=== PATIENT | female | born 1940 | race Two or more races ===

== ENCOUNTER 2018-10-06 19:30 | Inpatient (IN) | payer MEDICARE, OTHER ==
[~2018-10-06] VITALS: Ht 157.5 cm; Wt 39.6 kg
[~2018-10-06 19:30] MED LIST: APOM10CA7 SQ; ASPI-605 PO; BESI5DRO RIGHTEYE; BIMA2.5D5 EACHEYE; CARB1CAP7 PO; CIPR500T5 PO; CYAN-10 IJ; DIFL5DRO OP; ESCI20TA PO; KETO5DRO3 RIGHTEYE; OMEG1CAP PO; OMEP20TA5 PO; SENN8.6T7 PO; SITA1TAB6 PO
--- NOTE | 2018-10-06 20:20 | NUR ---
Dr. Hanson at bedside for MSE.
[2018-10-06] MEDS ORDERED: IV NORMAL SALINE 1000 ML BAG IV ONE (20:30)
--- NOTE | 2018-10-06 20:37 | NUR ---
Xray at bedside.
--- NOTE | 2018-10-06 20:50 | NUR ---
Pt refused perez catheter, able to go in bedpan. Patient provided urine sample, sent to lab.
[2018-10-06 20:53] LABS: CARBON DIOXIDE 32 mmol/L (21-32); CHLORIDE 107 mmol/L (98-107); CREATININE 0.5 mg/dL (0.6-1.3); GLUCOSE 129 mg/dL (74-106); POTASSIUM 4.4 mmol/L (3.5-5.1); UREA NITROGEN, BLOOD 33 mg/dL (7-18)
[2018-10-06 20:54] LABS: BASOPHILS % (AUTO) 0.6 % (0.0-2.0); EOSINOPHILS % (AUTO) 0.8 % (0.0-7.0); HEMATOCRIT 36.2 % (31.2-41.9); HEMOGLOBIN 11.7 g/dL (10.9-14.3); LYMPHOCYTES # (AUTO) 1.1 K/uL (20.0-40.0); LYMPHOCYTES % (AUTO) 22.3 % (20.5-51.5); MEAN CORPUSCULAR HEMOGLOBIN 30.1 uug (24.7-32.8); MEAN CORPUSCULAR HGB CONC 32 g/dL (32.3-35.6); MEAN CORPUSCULAR VOLUME 93.5 fL (75.5-95.3); MONOCYTES # (AUTO) 0.4 K/uL (2.0-10.0); MONOCYTES % (AUTO) 7.2 % (0.0-11.0); NEUTROPHILS # (AUTO) 3.5 K/uL (1.8-8.9); NEUTROPHILS % (AUTO) 69.1 % (38.5-71.5); PLATELET COUNT (AUTO) 168 K/uL (179-408); RED BLOOD CELL COUNT(AUTO) 3.87 MIL/uL (3.63-4.92); WHITE BLOOD COUNT (AUTO) 5.1 K/uL (3.8-11.8)
[2018-10-06 20:57] LABS: *BILIRUBIN,URIN NEGATIVE (NEGATIVE); *BLOOD, URINE NEGATIVE (NEGATIVE); *COLOR,URINE YELLOW (YELLOW); *KETONES,URINE NEGATIVE (NEGATIVE); *UROBILINOGEN,URINE 0.2 E.U./dl (NORMAL); LEUKOCYTE ESTERASE ,URINE NEGATIVE (NEGATIVE); NITRITE, URINE NEGATIVE (NEGATIVE); UGLUCOSE NEGATIVE (NEGATIVE)
[2018-10-06 21:02] LABS: *CLARITY,URINE SLIGHTLY HAZY (CLEAR)
[2018-10-06 21:03] LABS: MUCUS,URINE FEW /LPF (0-FEW); SQUAMOUS EPITHELIAL CELL,UR MODERATE /HPF (NONE SEEN); URINE AMORPHOUS PHOSPHATES FEW /HPF; WBC,URINE 0-3 /HPF (0-3)
[2018-10-06 21:08] LABS: ALANINE AMINOTRANSFERASE 7 U/L (14-59); ALKALINE PHOSPHATASE 52 U/L (50-136); ASPARTATE AMINOTRANSFERASE 13 U/L (15-37); BILIRUBIN,DIRECT 0.1 mg/dL (0.0-0.2); BILIRUBIN,TOTAL 0.4 mg/dL (0.2-1.0); TOTAL PROTEIN, SERUM 6.5 g/dL (6.4-8.2)
[2018-10-06] MEDS ORDERED: BISA10SU11 RC (21:14)
[2018-10-06] MEDS ORDERED: MAGN400T6 PO (21:14)
[2018-10-06] MEDS ORDERED: LINA5TAB PO (21:14)
[2018-10-06] MEDS ORDERED: QUET25TA PO (21:14)
[2018-10-06] MEDS ORDERED: MAGN400O6 PO (21:14)
[2018-10-06] MEDS ORDERED: METF-442 PO (21:14)
[2018-10-06] MEDS ORDERED: APIX2.5T PO (21:14)
[2018-10-06] MEDS ORDERED: MULT-213 PO (21:14)
[2018-10-06] MEDS ORDERED: DOCU100C36 PO (21:14)
[2018-10-06] MEDS ORDERED: ASCO500C18 PO (21:14)
[2018-10-06] MEDS ORDERED: LATA2.5D7 EACHEYE (21:14)
[2018-10-06] MEDS ORDERED: QUET100T PO (21:14)
[2018-10-06] MEDS ORDERED: ARGI1POW13 PO (21:14)
[2018-10-06] MEDS ORDERED: FLUT16SP NS (21:14)
[2018-10-06] MEDS ORDERED: CLON0.5T PO (21:14)
[2018-10-06] MEDS ORDERED: LACT1CAP83 PO (21:14)
[2018-10-06] MEDS ORDERED: ACET-2154 PO ×2 (21:14)
[2018-10-06] MEDS ORDERED: CRAN425C6 PO (21:14)
--- NOTE | 2018-10-06 21:26 | NUR ---
Call placed to [facility], Woodrow Patel ([email or web address]) has been paged.
--- NOTE | 2018-10-06 21:42 | NUR ---
Dr. Patel at bedside.
[2018-10-06] MEDS ORDERED: MAGNESIUM HYDROXIDE 30 ML LIQUID UDC PO PRN (22:15)
[2018-10-06] MEDS ORDERED: BISACODYL 10 MG SUPP.RECT RC PRN (22:15)
--- NOTE | 2018-10-06 22:17 | NUR ---
Report given to Georgina CORNELIUS Tele.
[2018-10-06] MEDS ORDERED: ONDANSETRON 4 MG/2 ML VIAL IV PRN (22:30)
[2018-10-06] MEDS ORDERED: HYDROCODONE/APAP 5-325MG TABLET PO PRN (22:30)
[2018-10-06] MEDS ORDERED: DEXTROSE 50% 50 ML DISP.SYRIN IV PRN (22:30)
[2018-10-06 22:40] VITALS: BP 140/59
--- NOTE | 2018-10-06 23:00 | NUR ---
RECEIVED PATIENT VIA GURNEY FROM ER. PATIENT IS A/O X2-3. FARSI SPEAKING BUT ABLE TO MAKE SIMPLE NEEDS KNOWN. DENIES PAIN. NO RESP. DISTRESS NOTED. VSS. PATIENTS FAMILY REPORTED THAT PATIENT HAS OLD SCAR NOTED TO SACRAL AREA. UPON PHYSICAL ASSESSMENT, OPEN AREA NOTED AT OLD SCAR SITE. SMALL SMEAR OF BLOOD NOTED ON DIAPER. AFFECTED AREA CLEANED AND MEPILEX APPLIED. CHIEF MAINTENANCE SUPERVISOR NOTIFIED. PICTURE TAKEN AND PLACED IN CHART. WOUND CARE ORDERED. PATIENT ON TELE SR WITH FREQUENT PVC'S. PATIENT REPOSITIONED TO SIDE FOR PRESSURE RELIEF. BED ALARM ON. CALL LIGHT IN REACH. ALL NEED ATTENDED. WILL CONTINUE TO MONITOR AND ASSESS.
--- NOTE | 2018-10-06 23:30 | NUR ---
PATIENT IS VERY ANXIOUS AND UPSET THAT SHE HASN'T TAKEN HER [place] MEDIATION FOR 20:00. NOTIFIED HELEN-BANKING CONSULTANT FOR FURTHER ORDERS. RECEIVED ORDER FOR PATIENT TO TAKE DOSE, BUT MEDICATION IS NOT AVAILABLE AT THIS TIME. SEMIAUTOMATIC STITCHER OPERATOR NOTIFIED.
[2018-10-06] MEDS: IV NS 1000 ML 1,000 ML IV PRN (23:51)
[2018-10-07] MEDS ORDERED: TEMAZEPAM 15 MG CAPSULE PO ONE (00:15)
--- NOTE | 2018-10-07 00:25 | NUR ---
PATIENT GIVEN SLEEPING PILL ORDERED. IVF INFUSING WELL. BED ALARM ON.
[2018-10-07] MEDS: ACETAMINOPHEN 325 MG TABLET PO PRN (02:03)
--- NOTE | 2018-10-07 02:05 | NUR ---
PATIENT AWAKE IN BED, CRYING OF A "BURNING FEEING" ON LOWER BACK. PATIENT GIVEN TYLENOL 650MG PO PRN FOR PAIN AND REPOSITIONED. WILL CONTINUE TO MONITOR AND ASSESS.
--- NOTE | 2018-10-07 02:48 | NUR ---
PATIENT ASLEEP. NO S/S OF PAIN OR DISCOMFORT. BED ALARM ON. WILL CONTINUE TO MONITOR AND ASSESS.
[2018-10-07 04:00] VITALS: BP 102/63
--- NOTE | 2018-10-07 06:01 | NUR ---
PATIENT ASLEEP. EASILY AROUSABLE. REPOSITIONED TO SIDE. ON TELE SR WITH PVC'S. BED ALARM ON, CALL LIGHT IN REACH. ALL NEEDS ATTENDED.
[2018-10-07] MEDS: BLOOD SUGAR DIAGNOSTIC 1 EACH STRIP VI SCH ×4 (06:35→20:36)
[2018-10-07] MEDS ORDERED: APOKYN (07:00)
[2018-10-07 07:26] LABS: BASOPHILS % (AUTO) 0.8 % (0.0-2.0); EOSINOPHILS # (AUTO) 0.1 K/uL (0.0-0.7); EOSINOPHILS % (AUTO) 1.3 % (0.0-7.0); HEMATOCRIT 31.7 % (31.2-41.9); HEMOGLOBIN 10.3 g/dL (10.9-14.3); LYMPHOCYTES # (AUTO) 1.2 K/uL (20.0-40.0); LYMPHOCYTES % (AUTO) 27.9 % (20.5-51.5); MEAN CORPUSCULAR HEMOGLOBIN 30.5 uug (24.7-32.8); MEAN CORPUSCULAR HGB CONC 33 g/dL (32.3-35.6); MEAN CORPUSCULAR VOLUME 93.6 fL (75.5-95.3); MONOCYTES # (AUTO) 0.4 K/uL (2.0-10.0); MONOCYTES % (AUTO) 9.1 % (0.0-11.0); NEUTROPHILS # (AUTO) 2.6 K/uL (1.8-8.9); NEUTROPHILS % (AUTO) 60.9 % (38.5-71.5); PLATELET COUNT (AUTO) 144 K/uL (179-408); RED BLOOD CELL COUNT(AUTO) 3.39 MIL/uL (3.63-4.92); WHITE BLOOD COUNT (AUTO) 4.2 K/uL (3.8-11.8)
[2018-10-07 07:42] LABS: ALANINE AMINOTRANSFERASE 7 U/L (14-59); ALKALINE PHOSPHATASE 41 U/L (50-136); ASPARTATE AMINOTRANSFERASE 11 U/L (15-37); BILIRUBIN,TOTAL 0.3 mg/dL (0.2-1.0); CARBON DIOXIDE 30 mmol/L (21-32); CHLORIDE 112 mmol/L (98-107); CHOLESTEROL 139 mg/dL (<200); CREATININE 0.5 mg/dL (0.6-1.3); GLUCOSE 153 mg/dL (74-106); HDL CHOLESTEROL 44 mg/dL (40-60); MAGNESIUM 1.8 mg/dL (1.8-2.4); PHOSPHOROUS 3.1 mg/dL (2.5-4.9); POTASSIUM 3.8 mmol/L (3.5-5.1); TOTAL PROTEIN, SERUM 5.3 g/dL (6.4-8.2); TRIGLYCERIDES 73 MG/DL (30-150); UREA NITROGEN, BLOOD 26 mg/dL (7-18)
[2018-10-07 07:47] LABS: THYROID STIMULATING HORMONE 0.989 mIU/mL (0.358-3.740)
[2018-10-07] MEDS: ESCITALOPRAM OXALATE 10 MG TABLET PO SCH (08:08)
[2018-10-07] MEDS: MAGNESIUM OXIDE 400 MG TABLET PO SCH (08:08)
[2018-10-07] MEDS: CULTURELLE CAPSULE PO SCH (08:08)
[2018-10-07] MEDS: OMEGA-3 FATTY ACIDS/FISH OIL CAPSULE PO SCH ×4 (08:09→17:37)
[2018-10-07] MEDS: DOCUSATE SODIUM 100 MG CAPSULE PO SCH ×3 (08:09→17:38)
[2018-10-07] MEDS: ASCORBIC ACID 500 MG TABLET PO SCH (08:09)
[2018-10-07] MEDS: MULTIVIT, IRON, MIN NO. 8, FA TABLET PO SCH (08:11)
[2018-10-07] MEDS: INSULIN REGULAR, HUMAN 300 UNIT/3 ML VIAL SQ PRN ×2 (08:13→11:57)
[2018-10-07] MEDS ORDERED: Medication Not On Formulary EA (Multivitamins W-Minerals (Multivitamin With Minerals) 1 PO SCH (09:00)
[2018-10-07] MEDS ORDERED: Medication Not On Formulary EA (Ascorbic Acid (Vitamin C) 500 MG) PO SCH (09:00)
[2018-10-07] MEDS ORDERED: ASPIRIN EC 81 MG TABLET.DR PO SCH (09:00)
[2018-10-07] MEDS ORDERED: QUETIAPINE FUMARATE 25 MG TABLET PO SCH (09:00)
[2018-10-07] MEDS ORDERED: Medication Not On Formulary EA (Cranberry Extract (Cranberry) 425 MG) PO SCH (09:00)
[2018-10-07] MEDS ORDERED: Medication Not On Formulary EA (Lactobacillus Acidophilus/Pect (Acidophilus-Pectin Capsu PO SCH (09:00)
[2018-10-07] MEDS ORDERED: Medication Not On Formulary EA (Arginine/Ascorbate Sod/Vite AC (Arginaid Powder) 1 EACH) PO SCH (09:00)
--- NOTE | 2018-10-07 11:00 | NUR ---
CHANGE OF ASSIGNMENT GOT REPORT FROM ASHLI RIVERS
[2018-10-07 11:27] VITALS: BP 127/59
--- NOTE | 2018-10-07 12:20 | NUR ---
patient was not responsive to touch or arousal to words for about 5-6 min , then she become responsive and opened eyes, no resp distress was noted.
[2018-10-07] MEDS: RYTARY PO SCH ×4 (13:08→20:21)
[2018-10-07] MEDS: IV NS 1000 ML 1,000 ML IV PRN (13:08)
[2018-10-07] MEDS ORDERED: IV 1/2NS 1000 ML 500 ML IV PRN (13:30)
[2018-10-07 15:47] VITALS: BP 117/63
--- NOTE | 2018-10-07 18:09 | NUR ---
Tried to give medications that are due at 1700, patient is in deep sleep, refused open eyes , VS are stable, on monitor is stable. doctor Tra notified
[2018-10-07 18:26] VITALS: BP 125/65
--- NOTE | 2018-10-07 19:32 | NUR ---
Patient is sleeping refused medications that are due at 1700, patient is in deep sleep, refused open eyes , VS are stable, on monitor is stable. doctor Jamar Young. notified, he wanted to stop all pain meds and phsych. meds for now, production shift supervisor nurse will call the farmacy and follow up. no distress , safety reinforced
[2018-10-07 20:03] VITALS: BP 131/53
[2018-10-07] MEDS: LATANOPROST OPHT DROP 2.5 ML BOTTLE EACHEYE SCH (20:23)
[2018-10-07] MEDS: QUETIAPINE FUMARATE 100 MG TABLET PO SCH (20:36)
--- NOTE | 2018-10-07 21:00 | NUR ---
PATIENT SENT TO CT FOR ORDERED CT OF THE HEAD WITHOUT CONTRAST
--- NOTE | 2018-10-07 21:15 | NUR ---
PATIENT BACK FROM CT
--- NOTE | 2018-10-07 21:30 | NUR ---
RECEIVED PATIENT FROM DAY SHIFT NURSE. PATIENT ALERT AND ORIENTED X 1-2. RESPONSIVE TO VERBAL AND TACTILE STIMULI. FAMILY AT BEDSIDE. FAMILY REQUESTING TO ASSIST WITH EVENING MEDICATION ADMINISTRATION SO PATIENT DOES NOT REFUSE MEDICATIONS. ORDER FOR CT OF THE HEAD FOR THIS EVENING. NEW ORDER FROM [facility] TO HOLD PAIN AND PSYCH MEDS. WILL FOLLOW THROUGH. WILL CONTINUE TO MONITOR.
--- NOTE | 2018-10-08 00:58 | NUR ---
INFORMED HEAD ROSE GROWER MD CHERRY OF CT SCAN RESULTS. WILL CONTINUE TO MONITOR.
[2018-10-08 04:06] VITALS: BP 133/60
[2018-10-08] MEDS: BLOOD SUGAR DIAGNOSTIC 1 EACH STRIP VI SCH ×4 (06:41→20:23)
--- NOTE | 2018-10-08 06:45 | NUR ---
PATIENT SLEPT WELL THROUGHOUT THE NIGHT. NO C/O PAIN OR SOB. RESTING IN BED.. WILL ENDORSE TO ONCOMING SHIFT ACCORDINGLY.
--- NOTE | 2018-10-08 07:05 | NUR ---
RECEIVED PATIENT IN BED, SLEEPING. PATIENT CONFUSED. RESPONSIVE TO VERBAL AND TACTILE STIMULI BY OPENING EYES. PATIENT NON VERBAL. RT. FA IN HL, INTACT AND FLUSHED. PATIENT ON AIR MATRES. SAFETY PRECAUTIONS IN PLACE. ALL NEEDS MET AT THIS TIME. WILL CONTINUE TO MONITOR.
[2018-10-08 07:10] LABS: BASOPHILS % (AUTO) 0.5 % (0.0-2.0); EOSINOPHILS # (AUTO) 0.1 K/uL (0.0-0.7); EOSINOPHILS % (AUTO) 1.9 % (0.0-7.0); HEMOGLOBIN 11.2 g/dL (10.9-14.3); LYMPHOCYTES # (AUTO) 0.9 K/uL (20.0-40.0); LYMPHOCYTES % (AUTO) 21.3 % (20.5-51.5); MEAN CORPUSCULAR HEMOGLOBIN 30.1 uug (24.7-32.8); MEAN CORPUSCULAR HGB CONC 32 g/dL (32.3-35.6); MEAN CORPUSCULAR VOLUME 93.5 fL (75.5-95.3); MONOCYTES # (AUTO) 0.3 K/uL (2.0-10.0); MONOCYTES % (AUTO) 7.6 % (0.0-11.0); NEUTROPHILS # (AUTO) 3.1 K/uL (1.8-8.9); NEUTROPHILS % (AUTO) 68.7 % (38.5-71.5); PLATELET COUNT (AUTO) 141 K/uL (179-408); RED BLOOD CELL COUNT(AUTO) 3.74 MIL/uL (3.63-4.92); WHITE BLOOD COUNT (AUTO) 4.4 K/uL (3.8-11.8)
[2018-10-08 07:25] LABS: CARBON DIOXIDE 26 mmol/L (21-32); CHLORIDE 108 mmol/L (98-107); CREATININE 0.4 mg/dL (0.6-1.3); GLUCOSE 122 mg/dL (74-106); MAGNESIUM 1.8 mg/dL (1.8-2.4); PHOSPHOROUS 2.5 mg/dL (2.5-4.9); UREA NITROGEN, BLOOD 20 mg/dL (7-18)
[2018-10-08] MEDS: DOCUSATE SODIUM 100 MG/10 ML LIQUID UDC PO SCH ×2 (08:39→16:30)
[2018-10-08] MEDS: CULTURELLE CAPSULE PO SCH (08:39)
[2018-10-08] MEDS: OMEGA-3 FATTY ACIDS/FISH OIL CAPSULE PO SCH ×3 (08:40→16:30)
[2018-10-08] MEDS: MULTIVIT, IRON, MIN NO. 8, FA TABLET PO SCH (08:40)
[2018-10-08] MEDS: MAGNESIUM OXIDE 400 MG TABLET PO SCH (08:40)
[2018-10-08] MEDS: RYTARY PO SCH ×4 (08:40→20:16)
[2018-10-08] MEDS: ESCITALOPRAM OXALATE 10 MG TABLET PO SCH (08:40)
[2018-10-08] MEDS: ASCORBIC ACID 500 MG TABLET PO SCH (08:41)
[2018-10-08] MEDS ORDERED: ASPIRIN 81 MG TAB.CHEW PO SCH (09:00)
[2018-10-08] MEDS ORDERED: ASPIRIN EC 81 MG TABLET.DR PO SCH (09:00)
[2018-10-08] MEDS: IV D5 1/2 NS 1000 ML 1,000 ML IV PRN (10:00)
[2018-10-08 11:37] VITALS: BP 162/80
[2018-10-08] MEDS ORDERED: CLONIDINE TTS 2 PATCH TD ONE (12:15)
[2018-10-08 15:38] VITALS: BP 106/70
--- NOTE | 2018-10-08 18:13 | NUR ---
PATIENT IN BED. AOX1 TO SELF. RESPONSIVE TO VERBAL AND TACTILE STIMULI BY OPENING EYES. PATIENT NON VERBAL. RT. FA INTACT. PATIENT WAS NOT COMPLIANT WITH AM MEDICATIONS. MD NOTIFIED AND STARTED HER ON IV FLUIDS. PATIENT NUTRITIONAL INTAKE VERY POOR. NUTRITION CONSULT NEEDED. VS STABLE. PATIENT ON AIR MATRES. SAFETY PRECAUTIONS IN PLACE. ALL NEEDS MET AT THIS TIME.
[2018-10-08] MEDS: INSULIN REGULAR, HUMAN 300 UNIT/3 ML VIAL SQ PRN ×2 (18:28→20:28)
--- NOTE | 2018-10-08 19:40 | NUR ---
Received pt in bed, AAO x 1 watching television. No acute distress noted. Verbally responsive and able to communicate basic needs. Denies pain or discomfort, no facial indications of pain noted. All safety measures and fall precautions maintained. Continuing IVF D5 1/2 NS @ 75 cc/hr in R FA #20g. No s/s infiltration noted. Call light and all personal belongings within reach. Will continue to monitor.
[2018-10-08 20:00] VITALS: BP 111/57
[2018-10-08] MEDS: QUETIAPINE FUMARATE 100 MG TABLET PO SCH (20:16)
[2018-10-08] MEDS: LATANOPROST OPHT DROP 2.5 ML BOTTLE EACHEYE SCH (20:16)
[2018-10-09 04:00] VITALS: BP 144/79
[2018-10-09] MEDS: BLOOD SUGAR DIAGNOSTIC 1 EACH STRIP VI SCH ×4 (06:46→21:00)
--- NOTE | 2018-10-09 06:55 | NUR ---
Pt slept intermittently throughout shift. No acute distress noted. No complaints of pain throughout shift. kept clean and dry, good pericare rendered. All due medications given as ordered, tolerated well. Continuing IVF on RFA, D5 1/2 NS @ 75 cc/hr. No s/s infiltration noted. Safety maintained. Call light and all personal belongings within reach. Will endorse accordingly to oncoming shift.
[2018-10-09 07:00] LABS: CARBON DIOXIDE 28 mmol/L (21-32); CHLORIDE 104 mmol/L (98-107); CREATININE 0.4 mg/dL (0.6-1.3); GLUCOSE 183 mg/dL (74-106); MAGNESIUM 1.7 mg/dL (1.8-2.4); PHOSPHOROUS 2.3 mg/dL (2.5-4.9); UREA NITROGEN, BLOOD 14 mg/dL (7-18)
[2018-10-09 07:37] LABS: BASOPHILS % (AUTO) 0.4 % (0.0-2.0); EOSINOPHILS # (AUTO) 0.1 K/uL (0.0-0.7); EOSINOPHILS % (AUTO) 1.6 % (0.0-7.0); HEMATOCRIT 36.9 % (31.2-41.9); LYMPHOCYTES # (AUTO) 0.9 K/uL (20.0-40.0); LYMPHOCYTES % (AUTO) 23.2 % (20.5-51.5); MEAN CORPUSCULAR HEMOGLOBIN 30.1 uug (24.7-32.8); MEAN CORPUSCULAR HGB CONC 33 g/dL (32.3-35.6); MEAN CORPUSCULAR VOLUME 92.8 fL (75.5-95.3); MONOCYTES # (AUTO) 0.3 K/uL (2.0-10.0); MONOCYTES % (AUTO) 6.5 % (0.0-11.0); NEUTROPHILS # (AUTO) 2.8 K/uL (1.8-8.9); NEUTROPHILS % (AUTO) 68.3 % (38.5-71.5); PLATELET COUNT (AUTO) 144 K/uL (179-408); RED BLOOD CELL COUNT(AUTO) 3.98 MIL/uL (3.63-4.92); WHITE BLOOD COUNT (AUTO) 4.1 K/uL (3.8-11.8)
--- NOTE | 2018-10-09 08:00 | NUR ---
patient received in bed, noted with no respiratory distress, patient no SOB noted. Patient assessed at this time, assessing pupil reflex, patient not interacting with staff, tightening eyes when attempting to assess, closing mouth tightly when assessing her oral mucosa. patient with with side rails up x2, low position and bed alarm on, call light within reach.
--- NOTE | 2018-10-09 09:45 | NUR ---
Attempt made again to try and administer meds to patient continues to refuse to open her eyes when assessing pupil reflex, patient continues to not interact at this time, frequent redirection provided. no distress noted no SOB, tightening hand when assessing pulse on her hand, radial pulse.
[2018-10-09] MEDS ORDERED: MAGNESIUM OXIDE 400 MG TABLET PO ONE (10:15)
--- NOTE | 2018-10-09 10:30 | NUR ---
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
[2018-10-09] MEDS: ESCITALOPRAM OXALATE 10 MG TABLET PO SCH (11:19)
[2018-10-09] MEDS: RYTARY PO SCH ×4 (11:19→21:53)
[2018-10-09] MEDS: MAGNESIUM OXIDE 400 MG TABLET PO SCH (11:20)
[2018-10-09] MEDS: DOCUSATE SODIUM 100 MG/10 ML LIQUID UDC PO SCH ×2 (11:21→17:23)
[2018-10-09] MEDS: ASPIRIN 81 MG TAB.CHEW PO SCH (11:21)
[2018-10-09] MEDS: OMEGA-3 FATTY ACIDS/FISH OIL CAPSULE PO SCH ×3 (11:21→17:23)
[2018-10-09] MEDS: ASCORBIC ACID 500 MG TABLET PO SCH (11:21)
[2018-10-09] MEDS: CULTURELLE CAPSULE PO SCH (11:21)
[2018-10-09 11:26] VITALS: BP 117/76
--- NOTE | 2018-10-09 11:30 | NUR ---
Family here to assist with medication administration, Jennifer, Daughter. patient opening her eyes now with frequent prompting with daughter. patient able to take medications, daughter her to assist with feeding and meds.
[2018-10-09] MEDS: IV D5 1/2 NS 1000 ML 1,000 ML IV PRN (12:24)
--- NOTE | 2018-10-09 12:26 | NUR ---
WOUND CARE CONSULT: PT PRESENTS WITH SACRAL REOPENED WOUND OVER SCARRING, PRESENT ON ADMISSION. 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 RECOMMEND SURGICAL CONSULT. RECOMMENDATIONS MADE FOR SKIN PROTECTION AND DISCUSSED WITH NURSING STAFF. PT IS INCONTINENT. [facility] WILL SEE PRN. GUAJARDO IN AGREEMENT WITH PLAN OF CARE. DEFER TO PLASTIC SURGERY TEAM FOR WOUND TREATMENT PLAN. Addendum: 10/09/18 at 1228 by MARIANELA DUBON RN Amended: Links added.
[2018-10-09] MEDS: INSULIN REGULAR, HUMAN 300 UNIT/3 ML VIAL SQ PRN (12:58)
--- NOTE | 2018-10-09 13:00 | NUR ---
unable to administer 1300 meds, patient took am meds late after 11am.
[2018-10-09] MEDS ORDERED: NEUTRA PHOS PACKET PO ONE (15:15)
[2018-10-09 15:55] VITALS: BP 152/76
--- NOTE | 2018-10-09 16:30 | NUR ---
patient closing her eyes again at this time, refusing to interact with staff, closing her eyes tightly, pulse present, no SOB, continue to assist patient with redirection to assist with coping and anxiety. maintain safety precautions., uncooperative with meds at this time.
--- NOTE | 2018-10-09 17:25 | NUR ---
Daughter Sherry visiting patient upset due to her mother (patient) not being provided with medications, family educated, patient refusing to interact unable to safely administer medications. patient is refusing to open her eyes or interact regardless of frequent prompts risk for aspirating if patient is not fully cooperative. per request contact family thru phone to assist with meds, endorse in nursing report . call family if patient refuses medication; to assist with meds: Sherry (Daughter) [phone] Jennifer (Daughter) [phone] Adryan (Son) [phone]
--- NOTE | 2018-10-09 19:00 | NUR ---
PATIENT AWAKE VERBALLY RESPONSIVE, NO SOB NO CHEST PAIN, FAMILY AT BEDSIDE. CONT TO MONITOR.
[2018-10-09 20:37] VITALS: BP 141/48
[2018-10-09] MEDS: QUETIAPINE FUMARATE 100 MG TABLET PO SCH (21:00)
[2018-10-09] MEDS: LATANOPROST OPHT DROP 2.5 ML BOTTLE EACHEYE SCH (21:52)
--- NOTE | 2018-10-09 22:07 | NUR ---
PATIENT REFUSED BLOOD SUGAR CHECK, GETS AGITATED. SEROQUEL NOT GIVEN PER FAMILY REQUEST. PATIENT AWAKE ALERT, TOOK ALL PO MEDICATIONS. CONT TO MONITOR.
--- NOTE | 2018-10-10 | NUR ---
SPOKE TO SON AND NOTIFY THAT PATIENT VERY AGITATED, CLIMBS OOB, RISK FOR FALL AND INJURY, OK TO GIVE SEROQUEL 50 MG ORDERED, NOTIFY POLA CHERRY RESOURCE TEACHER AND SAID TO GIVE SEROQUEL ORDERED.
[2018-10-10] MEDS: QUETIAPINE FUMARATE 100 MG TABLET PO SCH (00:03)
[2018-10-10] MEDS: IV D5 1/2 NS 1000 ML 1,000 ML IV PRN ×2 (00:52→17:00)
[2018-10-10] MEDS ORDERED: LORAZEPAM 2 MG/1 ML VIAL IV ONE (02:00)
--- NOTE | 2018-10-10 02:00 | NUR ---
PATIENT AWAKE ASSISTED TO COMMODE FOR BLADDER ELIMINATIONS, RENDERED GOOD JOSE CARE, TX DONE ON SACRUM, DRESSING WAS CHANGED, PLACE CLEAN PADS. PATIENT WAS OFFERED FOOD, WATER DENIES PAIN. MULTIPLE NURSING INTERVENTIONS PROVIDED PATIENT STILL AGITATED, PATIENT TRIES TO CLIMB OOB, PULLING IV POLE, PATIENT AT RISK FOR FALL AND INJURY, [facility] WAS NOTIFIED WITH ORDER.
--- NOTE | 2018-10-10 02:10 | NUR ---
PATIENT RESTLESS IN BED, CONTINUE TO CLIMB OOB, PLACE PATIENT IN RECLINING CHAIR TO PREVENT FROM FALL FROM BED. OFFERED FOOD AND WATER, KEPT PATIENT WARM CLEAN AND DRY. FREQUENT VISUAL CHECKS. CONT TO MONITOR.
[2018-10-10 05:19] VITALS: BP 141/52
[2018-10-10] MEDS: MULTIVIT, IRON, MIN NO. 8, FA TABLET PO SCH (06:08)
[2018-10-10] MEDS: BLOOD SUGAR DIAGNOSTIC 1 EACH STRIP VI SCH ×4 (06:08→21:39)
--- NOTE | 2018-10-10 07:00 | NUR ---
PATIENT FALL ASLEEP AT 0400, KEPT CLEAN AND DRY, TURN AND REPOSITION, PATIENT REFUSED MULTIVITAMIN PO, PATIENT GETS AGITATED WHEN PUSH TO TAKE MEDICATION. ENDORSED TO NEXT SHIFT.
[2018-10-10 07:33] LABS: CARBON DIOXIDE 31 mmol/L (21-32); CHLORIDE 106 mmol/L (98-107); CREATININE 0.4 mg/dL (0.6-1.3); GLUCOSE 138 mg/dL (74-106); MAGNESIUM 1.9 mg/dL (1.8-2.4); PHOSPHOROUS 2.5 mg/dL (2.5-4.9); POTASSIUM 4.5 mmol/L (3.5-5.1); UREA NITROGEN, BLOOD 16 mg/dL (7-18)
--- NOTE | 2018-10-10 08:30 | NUR ---
REMAINS SOUNDLY ASLEEP OPENS EYES WHEN NAME IS CALLED BUT HILARY FALLS BACK TO SLEEP TOO RISKY TO GIVE HER ANY MEDICATIONS SHE IS TOO SEDATED ALS UNABLE TO TOLERATE AND EAT HER BREAKFAST SAFELY WILL WAIT UNTIL SHE IS ABLE WILL CONTINUE TO PROVIDE SAFE AND THERAPEUTIC ENVIRONMENT AT ALL TIMES.
[2018-10-10] MEDS: CULTURELLE CAPSULE PO SCH ×2 (09:00→11:54)
[2018-10-10] MEDS: MAGNESIUM OXIDE 400 MG TABLET PO SCH ×2 (09:00→11:54)
[2018-10-10] MEDS: ASCORBIC ACID 500 MG TABLET PO SCH ×2 (09:00→11:54)
[2018-10-10] MEDS: OMEGA-3 FATTY ACIDS/FISH OIL CAPSULE PO SCH ×4 (09:00→16:57)
[2018-10-10] MEDS: ASPIRIN 81 MG TAB.CHEW PO SCH ×2 (09:00→11:53)
[2018-10-10] MEDS: DOCUSATE SODIUM 100 MG/10 ML LIQUID UDC PO SCH ×3 (09:00→16:51)
[2018-10-10] MEDS: ESCITALOPRAM OXALATE 10 MG TABLET PO SCH ×2 (09:00→11:54)
[2018-10-10] MEDS: RYTARY PO SCH ×5 (09:00→20:23)
--- NOTE | 2018-10-10 11:55 | NUR ---
PATIENTS DAUGHTER AGUSTÍN HERE AND STATED THAT SHE WILL BE ABLE TO GIVE PATIENT HER MEDICATIONS PATIENT WAS ABLE TO COMMUNICATE WITH HER DAUGHTER AND COOPERATIVE SO ALL THE MEDICATIONS THAT WAS HELD THIS MORNING WAS GIVEN TO HER AT THIS TIME UNSCHEDULED.
[2018-10-10 12:36] VITALS: BP 137/69
--- NOTE | 2018-10-10 13:21 | NUR ---
DUE MEDICATIONS NOT GIVEN AT THIS TIME TOO SOON BECAUSE AM MEDS WAS GIVEN ABOUT AN HOUR PLUS OR SO WHEN THE DAUGHTER GOT HERE
[2018-10-10] MEDS ORDERED: QUETIAPINE FUMARATE 25 MG TABLET PO PRN (15:00)
[2018-10-10 16:24] VITALS: BP 120/63
[2018-10-10 16:36] VITALS: BP 120/63
[2018-10-10] MEDS: CARBIDOPA/LEVODOPA 25-100MG TABLET PO SCH ×2 (16:57→20:23)
[2018-10-10] MEDS: INSULIN REGULAR, HUMAN 300 UNIT/3 ML VIAL SQ PRN ×2 (17:07→21:40)
--- NOTE | 2018-10-10 19:20 | NUR ---
Received patient lying in bed. AAOx2-3. In no acute distress. Denies any pain or SOB. IV site on right forearm intact and patent. IVF infusing. Isolation precaution observed. Safety measure initiated and call reynolds within reach.
[2018-10-10] MEDS: QUETIAPINE FUMARATE 25 MG TABLET PO SCH (20:23)
[2018-10-10] MEDS: LATANOPROST OPHT DROP 2.5 ML BOTTLE EACHEYE SCH (20:24)
[2018-10-10] MEDS ORDERED: QUETIAPINE FUMARATE 100 MG TABLET PO SCH (21:00)
--- NOTE | 2018-10-11 02:15 | NUR ---
PATIENT ACCIDENTALLY PULLED OUT IV LINE ON RIGHT FA. STARTED NEW IV LINE ON LEFT FA #[id number].
[2018-10-11 04:00] VITALS: BP 154/83
[2018-10-11] MEDS: MULTIVIT, IRON, MIN NO. 8, FA TABLET PO SCH (06:26)
[2018-10-11 06:29] LABS: BASOPHILS % (AUTO) 0.5 % (0.0-2.0); EOSINOPHILS # (AUTO) 0.1 K/uL (0.0-0.7); EOSINOPHILS % (AUTO) 2.2 % (0.0-7.0); HEMATOCRIT 31.2 % (31.2-41.9); HEMOGLOBIN 10.2 g/dL (10.9-14.3); LYMPHOCYTES % (AUTO) 26.8 % (20.5-51.5); MEAN CORPUSCULAR HEMOGLOBIN 30.3 uug (24.7-32.8); MEAN CORPUSCULAR HGB CONC 33 g/dL (32.3-35.6); MEAN CORPUSCULAR VOLUME 92.7 fL (75.5-95.3); MONOCYTES # (AUTO) 0.3 K/uL (2.0-10.0); MONOCYTES % (AUTO) 7.7 % (0.0-11.0); NEUTROPHILS # (AUTO) 2.3 K/uL (1.8-8.9); NEUTROPHILS % (AUTO) 62.8 % (38.5-71.5); PLATELET COUNT (AUTO) 130 K/uL (179-408); RED BLOOD CELL COUNT(AUTO) 3.36 MIL/uL (3.63-4.92); WHITE BLOOD COUNT (AUTO) 3.6 K/uL (3.8-11.8)
--- NOTE | 2018-10-11 06:30 | NUR ---
AAOx2-3. In no acute distress. Denies any pain or SOB. IV site on left forearm intact and patent. IVF infusing. Isolation precaution maintained. Safety measure maintained and call reynolds within reach.
[2018-10-11] MEDS: BLOOD SUGAR DIAGNOSTIC 1 EACH STRIP VI SCH ×4 (06:32→21:38)
[2018-10-11 06:45] LABS: CARBON DIOXIDE 31 mmol/L (21-32); CHLORIDE 107 mmol/L (98-107); CREATININE 0.4 mg/dL (0.6-1.3); GLUCOSE 140 mg/dL (74-106); MAGNESIUM 1.7 mg/dL (1.8-2.4); PHOSPHOROUS 2.8 mg/dL (2.5-4.9); POTASSIUM 5.2 mmol/L (3.5-5.1); UREA NITROGEN, BLOOD 15 mg/dL (7-18)
[2018-10-11] MEDS: IV D5 1/2 NS 1000 ML 1,000 ML IV PRN ×2 (07:21→23:08)
--- NOTE | 2018-10-11 07:30 | NUR ---
RECEIVED PATIENT ON FIRST STEP NICOLE ASLEEP WITH EYES CLOSED SEEMS CALM AT THIS TIME OPENS EYES WHEN TOUCHED OR NAME IS CALLED ON FIRST STEP NICOLE TURNED AND REPOSITIONED WITH HEELS FLOATED IVF REMAINS IN PROGRESS ORDERED CALL LIGHTS AND PERSONAL BELONGINGS ARE PLACED WITHIN EASY REACH NOT IN DISTRESS AT THIS TIME WILL CONTINUE TO OBSERVE.
[2018-10-11] MEDS: DOCUSATE SODIUM 100 MG/10 ML LIQUID UDC PO SCH ×2 (09:00→17:00)
[2018-10-11] MEDS: MAGNESIUM SULFATE/D5W 100 ML IV SCH ×2 (09:04→10:59)
[2018-10-11] MEDS: ASCORBIC ACID 500 MG TABLET PO SCH (09:13)
[2018-10-11] MEDS: MAGNESIUM OXIDE 400 MG TABLET PO SCH (09:13)
[2018-10-11] MEDS: CARBIDOPA/LEVODOPA 25-100MG TABLET PO SCH ×4 (09:13→21:30)
[2018-10-11] MEDS: OMEGA-3 FATTY ACIDS/FISH OIL CAPSULE PO SCH ×3 (09:13→16:54)
[2018-10-11] MEDS: CULTURELLE CAPSULE PO SCH (09:13)
[2018-10-11] MEDS: ASPIRIN 81 MG TAB.CHEW PO SCH (09:13)
[2018-10-11] MEDS: ESCITALOPRAM OXALATE 10 MG TABLET PO SCH (09:13)
[2018-10-11] MEDS: RYTARY PO SCH ×4 (09:14→21:32)
[2018-10-11] MEDS: Z GUARD REMEDY PASTE 57 GM TUBE TOP PRN ×2 (09:14→21:33)
--- NOTE | 2018-10-11 10:48 | NUR ---
PATIENT SEEN AND EXAMINED BY ANGELICA GONZALEZ IN HOME SALES CONSULTANT MAG IS 1.7 WITH NEW ORDERS AND NOTED
[2018-10-11 11:09] VITALS: BP 100/48
[2018-10-11] MEDS: INSULIN REGULAR, HUMAN 300 UNIT/3 ML VIAL SQ PRN ×2 (11:28→21:47)
[2018-10-11 15:37] VITALS: BP 139/76
--- NOTE | 2018-10-11 18:00 | NUR ---
AWAKE MORE ORIENTED AND TALKING BUT SPEECH IS DIFFICULT TO UNDERSTAND BUT SIMPLE NEEDS ARE UNDERSTOOD AND MET.MADE COMFORTABLE.
[2018-10-11 20:00] VITALS: BP 124/77
[2018-10-11] MEDS: ACETAMINOPHEN 325 MG TABLET PO PRN ×2 (20:36→21:30)
--- NOTE | 2018-10-11 21:00 | NUR ---
Received this patient awake alert verbally responsive. No SOB denies chest pain. Tolerated night p.o meds. Repositioned in bed, sponge bath provided & kept comfortable. IVF infusing well, IV site patent. Will continue to monitor.
[2018-10-11] MEDS: QUETIAPINE FUMARATE 25 MG TABLET PO SCH (21:30)
[2018-10-11] MEDS: LATANOPROST OPHT DROP 2.5 ML BOTTLE EACHEYE SCH (21:31)
--- NOTE | 2018-10-12 | NUR ---
Turned & repositioned. No sign of distress.
--- NOTE | 2018-10-12 02:44 | NUR ---
Patient still asleep, resting comfortably.
[2018-10-12 04:00] VITALS: BP 137/61
[2018-10-12] MEDS: BLOOD SUGAR DIAGNOSTIC 1 EACH STRIP VI SCH ×4 (06:54→21:29)
[2018-10-12] MEDS: MULTIVIT, IRON, MIN NO. 8, FA TABLET PO SCH (06:54)
[2018-10-12 07:27] LABS: BASOPHILS % (AUTO) 0.6 % (0.0-2.0); HEMATOCRIT 30.6 % (31.2-41.9); LYMPHOCYTES # (AUTO) 0.9 K/uL (20.0-40.0); LYMPHOCYTES % (AUTO) 19.4 % (20.5-51.5); MEAN CORPUSCULAR HEMOGLOBIN 30.2 uug (24.7-32.8); MEAN CORPUSCULAR HGB CONC 33 g/dL (32.3-35.6); MEAN CORPUSCULAR VOLUME 92.3 fL (75.5-95.3); MONOCYTES # (AUTO) 0.4 K/uL (2.0-10.0); NEUTROPHILS # (AUTO) 3.3 K/uL (1.8-8.9); PLATELET COUNT (AUTO) 136 K/uL (179-408); RED BLOOD CELL COUNT(AUTO) 3.32 MIL/uL (3.63-4.92); WHITE BLOOD COUNT (AUTO) 4.8 K/uL (3.8-11.8)
[2018-10-12 07:38] LABS: CARBON DIOXIDE 32 mmol/L (21-32); CHLORIDE 106 mmol/L (98-107); CREATININE 0.4 mg/dL (0.6-1.3); GLUCOSE 137 mg/dL (74-106); MAGNESIUM 1.9 mg/dL (1.8-2.4); PHOSPHOROUS 3.5 mg/dL (2.5-4.9); POTASSIUM 4.6 mmol/L (3.5-5.1); UREA NITROGEN, BLOOD 14 mg/dL (7-18)
--- NOTE | 2018-10-12 08:30 | NUR ---
SPPON FED WITH DIFFICULTY APPETITE IS POOR BUT WAS ABLE TO GIVE HER DUE MEDICATIONS CRUSHED IN APPLE SAUCE BECAUSE SHE REFUSED TO TAKE THEM WHOLE INITIALLY.CONFUSED AND DISORIENTED ALL NEEDS ANTICIPATED AND SATISFIED MADE COMFORTABLE.
[2018-10-12] MEDS: ASPIRIN 81 MG TAB.CHEW PO SCH (08:41)
[2018-10-12] MEDS: MAGNESIUM OXIDE 400 MG TABLET PO SCH (08:41)
[2018-10-12] MEDS: CARBIDOPA/LEVODOPA 25-100MG TABLET PO SCH ×4 (08:41→20:28)
[2018-10-12] MEDS: OMEGA-3 FATTY ACIDS/FISH OIL CAPSULE PO SCH ×3 (08:41→16:11)
[2018-10-12] MEDS: ESCITALOPRAM OXALATE 10 MG TABLET PO SCH (08:41)
[2018-10-12] MEDS: DOCUSATE SODIUM 100 MG/10 ML LIQUID UDC PO SCH ×2 (08:41→16:10)
[2018-10-12] MEDS: ASCORBIC ACID 500 MG TABLET PO SCH (08:41)
[2018-10-12] MEDS: CULTURELLE CAPSULE PO SCH (08:41)
[2018-10-12] MEDS: RYTARY PO SCH ×4 (08:42→20:27)
[2018-10-12 11:39] VITALS: BP 111/51
[2018-10-12] MEDS: INSULIN REGULAR, HUMAN 300 UNIT/3 ML VIAL SQ PRN ×2 (11:44→16:13)
[2018-10-12] MEDS: IV D5 1/2 NS 1000 ML 1,000 ML IV PRN (12:35)
--- NOTE | 2018-10-12 12:52 | NUR ---
AWAKE ALERT TO SELF WITH CONFUSSION AND DISORIENTATION ATTEMPTS TO GET OUT OF BED PATIENT WAS JUST PLACED ON THE COMMODE UNABLE TO MAKE NEEDS KNOWN UNABLE TO REDIRECT AT RISKS FOR FALLS RELATED TO CONFUSSION AND POOR SAFETY AWARENESS MEDICATED WITH SERROQUEL AT THIS TIME ORDERED MADE COMFORTABLE AND WILL CONTINUE TO OBSERVE AND PROVIDE SAFE AND THERAPEUTIC ENVIRONMENT AT ALL TIMES.
--- NOTE | 2018-10-12 13:15 | NUR ---
PHYSICAL THERAPY HERE AND PATIENT AMBULATED IN THE HALLWAY WITH FRONT WHEEL AND TOLERATED FAIRLY WELL BACK TO BED AND WILL CONTINUE TO OBSERVE.
[2018-10-12 15:28] VITALS: BP 95/53
--- NOTE | 2018-10-12 15:30 | NUR ---
REGIS JON FOR NEUROLOGY HERE TO SEE PATIENT WITH NO NEW ORDERS AT THIS TIME.
--- NOTE | 2018-10-12 18:00 | NUR ---
DAUGHTER AT THE BEDSIDE ASSISTING HER WITH HER MEALS NOT IN DISTRESS AT THIS TIME.
[2018-10-12 20:07] VITALS: BP 136/73
[2018-10-12] MEDS: LATANOPROST OPHT DROP 2.5 ML BOTTLE EACHEYE SCH (20:27)
[2018-10-12] MEDS: QUETIAPINE FUMARATE 25 MG TABLET PO SCH (20:27)
[2018-10-13] MEDS: IV D5 1/2 NS 1000 ML 1,000 ML IV PRN (02:36)
[2018-10-13 06:14] VITALS: BP 146/79
[2018-10-13] MEDS: BLOOD SUGAR DIAGNOSTIC 1 EACH STRIP VI SCH ×2 (06:42→12:42)
[2018-10-13] MEDS: MULTIVIT, IRON, MIN NO. 8, FA TABLET PO SCH (07:00)
--- NOTE | 2018-10-13 07:00 | NUR ---
patient received sleeping this am, patient in no distress at this time, IVF D51/2 NS running at 100ml/hr, patient with bed in low position, side rails up x2, call light within reach, bed alarm on, frequent checks continue to monitor
[2018-10-13] MEDS: ESCITALOPRAM OXALATE 10 MG TABLET PO SCH (09:10)
[2018-10-13] MEDS: RYTARY PO SCH ×2 (09:13→12:40)
[2018-10-13] MEDS: MAGNESIUM OXIDE 400 MG TABLET PO SCH (09:19)
[2018-10-13] MEDS: OMEGA-3 FATTY ACIDS/FISH OIL CAPSULE PO SCH (09:19)
[2018-10-13] MEDS: DOCUSATE SODIUM 100 MG/10 ML LIQUID UDC PO SCH (09:19)
--- NOTE | 2018-10-13 09:19 | NUR ---
patient awake however keeping her eyes closed, able to redirect, open her eyes, able to comply with morning medication, attempted to assist patient with breakfast meal, refusing after first bite of pureed eggs. continue to offer, Glucerna provided. no distress noted
[2018-10-13] MEDS: ASPIRIN 81 MG TAB.CHEW PO SCH (09:25)
[2018-10-13] MEDS: CULTURELLE CAPSULE PO SCH (09:25)
[2018-10-13] MEDS: ASCORBIC ACID 500 MG TABLET PO SCH (09:25)
--- NOTE | 2018-10-13 10:30 | NUR ---
patient consumed more than 50% of Glucerna, continue to monitor assist with adls and pericare, repositioned every 2 hours off load for pressure relief, wound care per MD orders q12hrs and prn for soiling.
--- NOTE | 2018-10-13 10:35 | NUR ---
Noted patient with two Parkinsons medications this am, contacted pharmacy, pending on Sinemet, patient was already on [facility] ER. spoke with Dedrick, Pharmacist.
--- NOTE | 2018-10-13 11:00 | NUR ---
Orders clarified with Plant Operations Coordinator, David Stover N.P. regarding Sinemet and patient being on [facility] ER. Confirmed with Neuro that patient will need to be discontinued off one of the meds, Sinemet discontinued. Patient selectively interacting this am, no aggression, no hallucinations. patient remains cooperative, fearful when assisted frequent redirection needed for emotional reassurance.
[2018-10-13 11:31] VITALS: BP 153/76
[2018-10-13] MEDS ORDERED: QUET25TA PO ×2 (11:45)
[2018-10-13] MEDS ORDERED: ESCI10TA PO (11:45)
--- NOTE | 2018-10-13 12:50 | NUR ---
Discharge Note Patient remains awake and alert able to comply with care with redirection, patient instructed on discharge instructions, reinforced to facility nurse at [facility], discussed medication adjustments, wound care orders and microbiology results, per plug wirer patient is asymptomatic, vitals stable, lab work stable. 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 questions and concerns addressed to facility. report provided. belongings accounted for at this time including medications brought in with patient. patient with wound care provided this am, recent photos of wound taken 10/12/18, no need for updated photos at this time, patient noted with improvement in wound from admission, wound present on admit. Family aware of discharge, Adryan, patient son. Addendum: 10/13/18 at 1422 by IAN MACEDO RN IV line and ID band removed
--- NOTE | 2018-10-13 12:50 | NUR ---
consumed 75% of glucerna
[2018-10-13] MEDS ORDERED: CARBIDOPA/LEVODOPA 25-100MG TABLET PO SCH (13:00)
--- NOTE | 2018-10-13 13:00 | NUR ---
patient sleeping this am, patient able to cooperative with meds, able to cooperative, however patient selectively mute and interacting selectively, irritable when doing accucheck this am, verbalizing too many checks, redirected and able to comply, accucheck stable 131mg/dl, no coverage at this time waiting for PO intake.
--- NOTE | 2018-10-13 13:25 | NUR ---
patient discharged via ambulance in stable condition
== END 2018-10-13 13:25 | DRG 682 ==
LOC: ER 19:33 → TELE3 22:33 → MEDSURG3 10-07 09:00
PROVIDERS: ADMIT Nurse Practitioner Acute Care; ATTEND Nurse Practitioner Acute Care
DX: N17.0 Acute kidney failure with tubular necrosis (principal); E43 Unspecified severe protein-calorie malnutrition; G93.41 Metabolic encephalopathy; R53.2 Functional quadriplegia; Z68.1 Body mass index [BMI] 19.9 or less, adult; E87.0 Hyperosmolality and hypernatremia; E86.0 Dehydration; G20 Parkinson's disease; H40.9 Unspecified glaucoma; E11.65 Type 2 diabetes mellitus with hyperglycemia; Z22.39 Carrier of other specified bacterial diseases; E87.5 Hyperkalemia; E83.42 Hypomagnesemia; D69.2 Other nonthrombocytopenic purpura; K21.9 Gastro-esophageal reflux disease without esophagitis; F41.9 Anxiety disorder, unspecified; L89.322 Pressure ulcer of left buttock, stage 2; L89.310 Pressure ulcer of right buttock, unstageable; L89.620 Pressure ulcer of left heel, unstageable; Z79.82 Long term (current) use of aspirin; I67.2 Cerebral atherosclerosis; E83.39 Other disorders of phosphorus metabolism; F29 Unspecified psychosis not due to a substance or known physiological condition; Z86.718 Personal history of other venous thrombosis and embolism; Z79.01 Long term (current) use of anticoagulants; Z79.899 Other long term (current) drug therapy; F32.9 Major depressive disorder, single episode, unspecified; D69.6 Thrombocytopenia, unspecified
CPT/HCPCS: 36415; 70030-TC; 70450; 71045; 83605; 83735; 84100; 84443; 85025; 85730; 87040; 87077; 87086; 92526; 93005; 97110; 97116; 97165; 97530; A4663; G0378; J1815; J2060; J2405; J3475; J3490; J7030